=== PATIENT | female | born 2000 | race Caucasian/White ===

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

== ENCOUNTER 2020-09-14 09:14 | Day surgery (SDC) | payer BC ==
[~2020-09-14 09:14] MED LIST: Lactated Ringers 1,000 ML IV SCH; Lidocaine 1%/Sod Bicarbonate in NS 8.4% 1 ML Syringe IDERM PRN; Sodium Chloride 0.9% 10 ML Syringe FLUSH PRN
--- NOTE | 2020-09-14 09:40 | PCM.PREANE ---
Preanesthetic Assessment - Procedure Proposed Procedure: diagnostic egd - Anesthesia/Transfusion/Family Hx Anesthesia History: Prior Anesthesia Without Reaction Family History of Anesthesia Reaction: No Transfusion History: No Prior Transfusion(s) Intubation History: Unknown - Review of Systems General: No Symptoms Pulmonary: No Symptoms Cardiovascular: No Symptoms Gastrointestinal: Abdominal Pain (upper abdominal pain at times) Neurological: No Symptoms Other: Reports: None - Physical Assessment NPO Status Date: 09/13/20 NPO Status Time: 23:55 Vital Signs: 98.9 16 98% 70 101/64 Height: 5 ft 6 in Weight: 61.2 kg ASA Class: 2 Mental Status: Alert & Oriented x3 Airway Class: Mallampati = 1 Dentition: Reports: Normal Dentition Thyro-Mental Finger Breadths: 3 Mouth Opening Finger Breadths: 3 ROM/Head Extension: Full Lungs: Clear to Auscultation, Normal Respiratory Effort Cardiovascular: Regular Rate, Regular Rhythm - Allergies Allergies/Adverse Reactions: Allergies Allergy/AdvReac Type Severity Reaction Status Date / Time No Known Allergies Allergy Verified 05/12/18 14:49 - Blood Blood Available: No - Acknowledgements Anesthesia Type Planned: MAC Pt an Appropriate Candidate for the Planned Anesthesia: Yes Alternatives and Risks of Anesthesia Discussed w Pt/Guardian: Yes Pt/Guardian Understands and Agrees with Anesthesia Plan: Yes PreAnesthesia Questionnaire HEENT History: Reports: Impaired Vision Other HEENT History: Patient wears contact lenses. 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 Respiratory Surgical History: Reports: None Female Surgical History: Reports: Other (See Below) Other Female Surgeries/Procedures: left oophorectomy, left ovarian cystectomy, eggs harvested prior to chemotherapy Fall 2017 Endocrine Surgical History: Reports: None Neurological Surgical History: Reports: None Musculoskeletal Surgical History: Reports: Arthroscopic Knee, Other (See Below) Other Musculoskeletal Surgeries/Procedures:: Right Hip Arthoscopy with Labrial Repair; Left Knee Video Arthroscopy- LEFT HIP ARTHROSCOPY Oncologic Surgical History: Reports: None Dermatological Surgical History: Reports: None - SUBSTANCE USE Tobacco Use Status *Q: Never Tobacco User Tobacco Use Within Last Twelve Months: No Second Hand Smoke Exposure: No Days Per Week of Alcohol Use: 0 Recreational Drug Use History: No - HOME MEDS Home Medications: Home Meds norgestrel-ethinyl estradioL [Elinest-28 Tablet] 1 tab PO DAILY #112 tablet 12/18/17 [Rx] Multivitamin [Daily Multiple Vitamin] 1 tab PO DAILY 04/01/18 [History] ondansetron HCL [Zofran] 4 mg PO Q6H PRN 04/01/18 [History] Azithromycin [Zithromax] 250 mg PO DAILY #4 tab 05/12/18 [Rx] Filgrastim-Sndz [Zarxio] 1 dose IJ DAILY 05/12/18 [History] Oseltamivir [Tamiflu] 75 mg PO BID #9 cap 05/12/18 [Rx] Sucralfate [Carafate] 1 gm PO QID 05/12/18 [History] dexAMETHasone [Dexamethasone] 1 dose PO ASDIRECTED PRN 05/12/18 [History] - CURRENT (IN HOUSE) MEDS Current Meds: Current Medications Lactated Ringer's (Ringers, Lactated) 1,000 mls @ 125 mls/hr IV ASDIRECTED JUNIOR Stop: 09/14/20 23:00 Lidocaine/Sodium Bicarbonate (Lidocaine 1%/Sod Bicarbonate In Ns 8.4% 1 Ml Syringe) 0.25 ml IDERM ONETIME PRN PRN Reason: Prior to IV Start Stop: 09/14/20 18:00 Sodium Chloride (Sodium Chloride 0.9% 10 Ml Syringe) 10 ml FLUSH ASDIRECTED PRN PRN Reason: Keep Vein Open Stop: 09/14/20 18:00
[2020-09-14] MEDS ORDERED: fentaNYL 100 MCG/2 ML SDV ONE (10:15)
[2020-09-14] MEDS ORDERED: Midazolam 1 MG/ML 2 ML SDV ONE (10:15)
[2020-09-14] MEDS ORDERED: Propofol 200 MG/20 ML SDV ONE (10:15)
[2020-09-14] MEDS ORDERED: Lidocaine 1% 4 ML ONE (10:15)
[2020-09-14] MEDS ORDERED: ePHEDrine 50 MG/ML SDV ONE (10:29)
[2020-09-14] MEDS ORDERED: Ondansetron 4 MG/2 ML SDV IVPUSH PRN (10:49)
--- NOTE | 2020-09-14 11:01 | PCM48HPAN ---
Post Anesthesia Note - EVALUATION WITHIN 48HRS OF ANESTHETIC Vital Signs in Normal Range: Yes Patient Participated in Evaluation: Yes Respiratory Function Stable: Yes Airway Patent: Yes Cardiovascular Function Stable: Yes Hydration Status Stable: Yes Pain Control Satisfactory: Yes Nausea and Vomiting Control Satisfactory: Yes Mental Status Recovered: Yes
--- NOTE | 2020-09-14 11:03 | PCM.PRNOTE ---
- Free Text/Narrative Note: Date: 09/14/2020 Procedure: diagnostic esophagogastroduodenoscopy Indication: gastroesophageal reflux Endoscopist: Bakari Lorenzana MD Findings: patulous pyloric channel and gastroesophageal junction, with gross evidence of reflux esophagitis including linear erythematous streaking (LA Grade A) and distal esophageal exudate. Z-line was not well defined. Detailed Report: The patient was taken to the endoscopy suite and placed in left lateral decubitus position. Time out was performed and monitored anesthesia care was initiated. A bite block was placed. The endoscope was inserted into the mouth and advanced to the distal duodenum with ease. Duodenal mucosa appeared normal. A sample of mucosa was biopsied with cold forceps. The scope was withdrawn into the stomach. The pylorus was widely open. Gastric mucosa appeared grossly normal. A biopsy was taken from the antrum cold forceps. On retroflexion, there was apparent laxity of the LES with a "skirt" around the scope. There did not appear to be much of a hiatal hernia. The scope was withdrawn into the distal esophagus. The Z line was difficult to discern. There appeared to be inflammatory change including mild linear erythematous change to mucosal folds and scattered superficial exudate in the distal esophagus. Several biopsies were obtained at the GE junction and distal esophagus. The proximal half of the esophagus appeared normal. Air was suctioned from the stomach prior to withdrawal of the scope. The patient tolerated the procedure well.
[2020-09-14 13:05] VITALS: BP 100/57; PULSE 72
== END 2020-09-14 11:33 | disposition home or self-care (01) ==
LOC: JD.SDS 09:14
PROVIDERS: ATTEND Surgery
DX: K29.50 Unspecified chronic gastritis without bleeding (principal); K21.9 Gastro-esophageal reflux disease without esophagitis; K31.89 Other diseases of stomach and duodenum; K22.8 Other specified diseases of esophagus; K20.0 Eosinophilic esophagitis; Z79.899 Other long term (current) drug therapy; Z98.890 Other specified postprocedural states
CPT/HCPCS: 43239; J2250; J2704; J3010; J7120; 00731